=== PATIENT | male | born 1965 | race Caucasian/White ===

== ENCOUNTER 2018-01-31 21:52 | Observation (INO) ==
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
[2018-01-31] MEDS ORDERED: Lidocaine/EPI 1:100k 1% 30 ML VIAL INFILT ONE (23:12)
--- NOTE | 2018-01-31 23:15 | Emergency Department Note ---
Disposition Clinical Impression: Cellulitis of right leg Disposition: Admitted As Inpatient Referrals: Muna Harrell CNP [Primary Care Provider] - Forms: ED Satisfaction Letter General Adult HPI - General Chief complaint: ED Wound/Laceration Stated complaint: Spider Bite, Lt knee, x3 days Time Seen by Provider: 01/31/18 22:28 Source: patient Limitations: no limitations - History of Present Illness HPI Narrative: ED ATTESTATION NOTE: I examined this patient and my medical decision-making was reviewed with the Resident Physician/ELECTRICAL SUPERVISOR/PA/Student. I have personally performed a face to face evaluation on this patient & I agree with the documented findings, disposition and treatment plan as described except to the extent set forth below. Patient was seen with physician assistant plant control operator Mckinley Moss please see copy of her note for details of this encounter Briefly: 52-year-old male seen in outside emergency department just yesterday started on doxycycline states it is getting more painful and red with the boil getting bigger. Denies IV drug use or fever chills no signs of joint involvement or neurovascular compromise his tetanus is up-to-date circumscribed patient will get IV antibiotics screening labs will be admitted. Pain Scale: 8 - Related Data Allergies Allergy/AdvReac Type Severity Reaction Status Date / Time Penicillins Allergy Rash Verified 09/16/16 09:52 Past Medical History - Past Medical History Medical history: Reports: no medical history, migraine Psychiatric history: Reports: no psych history - Social History Smoking Status: Current every day smoker Smokeless Tobacco Status: No Alcohol use: Reports: none Drug use: Reports: none Physical Exam - General Limitations: no limitations General appearance: alert, in no apparent distress Course Vital Signs Temperature 98 F 01/31/18 21:57 Pulse Rate 93 01/31/18 21:57 Respiratory Rate 12 01/31/18 21:57 Blood Pressure 125/81 01/31/18 21:57 O2 Sat by Pulse Oximetry 98 01/31/18 21:57 Temperature 98 F 01/31/18 21:57 Pulse Rate 93 01/31/18 21:57 Respiratory Rate 12 01/31/18 21:57 Blood Pressure 125/81 01/31/18 21:57 O2 Sat by Pulse Oximetry 98 01/31/18 21:57 Oxygen Delivery Oxygen Delivery Room Air
[2018-02-01 00:08] LABS: Basophils # 0.1 K/mcL (0.0-0.2); Basophils % 0.5 %; Eosinophils # 0.6 K/mcL (0.0-0.6); Eosinophils % 5.4 %; Hematocrit 48.7 % (37.5-50.1); Hemoglobin 17.3 g/dL (12.9-16.9); Immature Granulocytes % 0.6 % (0-4); Mean Corpuscular HGB Conc 35.5 g/dL (31.6-35.5); Mean Corpuscular Hemoglobin 32.7 pg (28.0-33.3); Mean Corpuscular Volume 92.1 fL (83.0-100.0); Mean Platelet Volume 9.4 fL (9.4-12.4); Monocytes # 0.7 K/mcL (0.0-1.3); Monocytes % 7.2 %; Neutrophils # 6.9 K/mcL (1.6-8.9); Platelet Count 243 K/mcL (140-400); Red Blood Count 5.29 M/mcL (4.19-5.50); Red Cell Distribution Width 13.6 % (11.5-14.5); Segmented Neutrophils % 67.3 %
[2018-02-01] MEDS ORDERED: 0.9 % Sodium Chloride 1,000 ML IVC ONE (00:19)
[2018-02-01 00:24] LABS: BUN/Creatinine Ratio 11 (6-26); Blood Urea Nitrogen 11 mg/dL (6-20); Carbon Dioxide 25 mEq/L (23-29); Chloride 106 mEq/L (98-107); Glucose 126 mg/dL (70-105); Osmolality,Calculated 285 (280-300); Potassium 3.8 mEq/L (3.5-5.1); Sodium 137 mEq/L (136-145); eGFR For Non-African Americans > 60 (> 60)
[2018-02-01] MEDS ORDERED: *HR* OxyCODONE/APAP 5/325 TABLET PO ONE (00:49)
[2018-02-01] MEDS ORDERED: Levofloxacin 750 MG/150 ML 750 MG/150 ML BAG IVPB ONE (01:37)
[2018-02-01] MEDS ORDERED: *HR* HYDROcodone/Acet 5/325 mg TABLET PO PRN (03:06)
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
[2018-02-01] MEDS ORDERED: Acetaminophen/Butalbital/CaffeineTABLET PO PRN (09:00)
[2018-02-01] MEDS ORDERED: Diclofenac Sodium 75 MG TABLET PO SCH (09:00)
[2018-02-01] MEDS ORDERED: Vancomycin 1,750 MG in 0.9 % Sodium Chloride 250 ML IVPB SCH (09:00)
--- NOTE | 2018-02-01 10:09 | General Surgery Consult Note ---
<Abiel Lim R - Last Filed: 02/01/18 10:07> Date of Encounter: 02/01/18 Time of Encounter: 10:00 Assessment and Plan (1) Abscess or cellulitis of knee Current Visit: Yes Status: Acute Patient does have significant pain and swelling of the superficial medial left knee. Patient recently ate breakfast Plan: CT LLE for further evaluation of abscess and knee joint Likely surgery this evening for I&D pending CT findings NPO now IV abx comfort care and pain control History of Present Illness Consult date: 02/01/18 Reason for consult: other (Left LE abscess) Requesting physician: Rogelio Kim History of present illness: Mr. Chou is a 52 year old male with a history of asthma, current smoker, and migraine headaches. Presenting to the ED overnight for evaluation of left lower extremity swelling and pain. Patient states that approximately 3 days ago he was working in his shed when he noticed a a spider on his leg, he believes this was a brown recluse. 2 days later he noticed increasing swelling and redness at the site of the spider bite, he was seen at [facility] yesterday and started on oral doxycycline. Patient states that he was compliant with this medication, however pain, redness, and swelling worsened significantly and he subsequently presented to the ED for further evaluation. Incision and drainage was tried in the emergency department which was unsuccessful due to inadequate pain control. He denies nausea, vomiting, or fevers. He denies previous occurrence of abscess or cellulitis. Denies IV drug abuse. Patient reports that pain is focal and isolated to the region of swelling, does not radiate, no pain at the knee joint with knee flexion and extension. Was given 1 dose of Levaquin and vancomycin in the ED, patient is currently on vancomycin. No imaging was obtained during initial evaluation. At present evaluation pain is improved with medication, however still present. Continues to deny nausea or vomiting, fever, or chills. Past Med Surg Social Fam HX - Past Medical History Medical history: no medical history, migraine Psychiatric history: no psych history - Past Surgical History Additional surgical history: brain surgery benign tumor - Social History Smoking Status: Current every day smoker Packs per day: 0.5 Smokeless Tobacco Status: No Alcohol use: none Drug use: none Medications and Allergies Acetaminophen/Butalbital/Caffe [Fioricet] 1 tab PO BID 01/31/18 [History] Albuterol Sulfate [Ventolin Hfa] 2 puff IH Q4-6H PRN 01/31/18 [History] Diclofenac Sodium [Voltaren] 75 mg PO BID 01/31/18 [History] Doxycycline [Doxycycline] 100 mg PO BID 01/31/18 [History] Gabapentin [Neurontin] 600 mg PO TID 01/31/18 [History] Tamsulosin HCl [Flomax] 0.4 mg PO TID 01/31/18 [History] DiphenhydraMINE [Benadryl] 25 mg PO BID PRN 02/01/18 [History] Mometasone/Formoterol [Dulera 200 Mcg/5 Mcg Inhaler] 1 puff IH DAILY 02/01/18 [ History] 3 Allergy/AdvReac Type Severity Reaction Status Date / Time Penicillins Allergy Rash Verified 09/16/16 09:52 Review of Systems All systems PM: The remainder of the systems were reviewed and are negative General Surgery Exam Initial Vital Signs Temp Pulse Resp BP Pulse Ox 98 F 93 12 125/81 98 01/31/18 21:57 01/31/18 21:57 01/31/18 21:57 01/31/18 21:57 01/31/18 21:57 - General physical appearance well developed, well nourished, no distress - Eyes PERRL, normal ocular movement - ENT normal mucosa, decreased hearing, atraumatic, normocephalic - Neck trachea midline, no lymphadectomy - Respiratory normal expansion, normal respiratory effort - Cardiovascular Cardiovascular exam: Present: RRR - Abdomen Abdomen general surgery: Present: bowel sounds present, soft, non tender - Integumentary Integumentary general surgery: Present: other (Erythema and superficial swelling , aproximately 9x7 cm, along the medial aspect of the left knee, surrounded by skin marker outline. Opening with minimal drainage is present in the center of the indurated region. Unable to express drainage on exam. ) - Neurologic Present: CN 2-12 grossly intact - Musculoskeletal Present: normal posture - Psychiatric Psychiatric general surgery: Present: A&Ox3, speech is normal, memory intact Exam Initial Vital Signs Temp Pulse Resp BP Pulse Ox 98 F 93 12 125/81 98 01/31/18 21:57 01/31/18 21:57 01/31/18 21:57 01/31/18 21:57 01/31/18 21:57 Results - Labs 01/31/18 23:33 01/31/18 23:33 Abnormal lab results Hgb 17.3 g/dL (12.9-16.9) H 01/31/18 23:33 Glucose 126 mg/dL (70-105) H 01/31/18 23:33 All other labs normal. Consult Discharge Plan - Plan Referrals: Muna Harrell, [employer] [Primary Care Provider] - <Hugh Oneal - Last Filed: 02/01/18 16:55> Date of Encounter: 02/01/18 Review of Systems All systems PM: The remainder of the systems were reviewed and are negative General Surgery Exam Initial Vital Signs Temp Pulse Resp BP Pulse Ox 98 F 93 12 125/81 98 01/31/18 21:57 01/31/18 21:57 01/31/18 21:57 01/31/18 21:57 01/31/18 21:57 Exam Initial Vital Signs Temp Pulse Resp BP Pulse Ox 98 F 93 12 125/81 98 01/31/18 21:57 01/31/18 21:57 01/31/18 21:57 01/31/18 21:57 01/31/18 21:57 Results - Labs 01/31/18 23:33 01/31/18 23:33 Abnormal lab results Hgb 17.3 g/dL (12.9-16.9) H 01/31/18 23:33 Glucose 126 mg/dL (70-105) H 01/31/18 23:33 All other labs normal. - Attending Attestation patient seen and examined. I have reviewed all labs, imaging, and notes. I agree with the above assessment and plan and wish to add the following... 52M likely with subcutaneous abscess along his left knee; plan for I&D today
[2018-02-01] MEDS ORDERED: OXYCODONE Oral CONC 10 MG/0.5 ML ORAL.SYG SL PRN (10:38)
[2018-02-01] MEDS: Gabapentin 300 MG CAPSULE PO SCH ×3 (10:51→20:42)
[2018-02-01] MEDS ORDERED: Isovue-370 500 ML INFUS..BTL IV ONE (11:02)
[2018-02-01] MEDS ORDERED: *HR* Propofol 200 MG/20 ML VIAL IVP ONE (17:39)
[2018-02-01] MEDS ORDERED: Dexamethasone 4 MG/ML VIAL ONE (17:39)
[2018-02-01] MEDS ORDERED: *HR* Succinylcholine 200 MG/10 ML VIAL IVP ONE (17:39)
[2018-02-01] MEDS ORDERED: Lidocaine -MPF 2% 2 ML VIAL ONE (17:39)
[2018-02-01] MEDS ORDERED: Ondansetron 4 MG/2 ML VIAL ONE (17:39)
[2018-02-01] MEDS ORDERED: *HR* Midazolam HCl 2 MG/2 ML VIAL ONE (17:39)
[2018-02-01] MEDS ORDERED: *HR* FentaNYL (PF) 100 MCG/2 ML VIAL ONE (17:39)
[2018-02-01] MEDS ORDERED: Albuterol 2.5 MG/3 ML NEBULIZER ONE (17:41)
--- NOTE | 2018-02-01 17:55 | Anesthesia Evaluation PreOp ---
Date of Encounter: 02/01/18 Time of Encounter: 17:53 - Past History Planned Operation: I and D knee Cardiac History: Denies any Significant Hx Pulmonary History: Smoker, COPD, Other (non compliant with therapy) SEARCH ANALYST History: Denies Any Significant HX Other Medical History: Denies Any Significant HX Anesthesia History: No Prior Anesthetic Complications, Past Anesthesia Alcohol Use: none Drug use: none Medications and Allergies Acetaminophen/Butalbital/Caffe [Fioricet] 1 tab PO BID 01/31/18 [History] Albuterol Sulfate [Ventolin Hfa] 2 puff IH Q4-6H PRN 01/31/18 [History] Diclofenac Sodium [Voltaren] 75 mg PO BID 01/31/18 [History] Doxycycline [Doxycycline] 100 mg PO BID 01/31/18 [History] Gabapentin [Neurontin] 600 mg PO TID 01/31/18 [History] Tamsulosin HCl [Flomax] 0.4 mg PO TID 01/31/18 [History] DiphenhydraMINE [Benadryl] 25 mg PO BID PRN 02/01/18 [History] Mometasone/Formoterol [Dulera 200 Mcg/5 Mcg Inhaler] 1 puff IH DAILY 02/01/18 [ History] 3 Allergy/AdvReac Type Severity Reaction Status Date / Time Penicillins Allergy Rash Verified 09/16/16 09:52 - Meds/Allergy Pre-op Review Medications Reviewed: Yes Allergies Reviewed: Yes Beta Blockers on Current Med List: No Anesthesia Results - Labs 01/31/18 23:33 01/31/18 23:33 Anesthesia Exam Selected Entries 02/01/18 14:53 Temperature 98.1 F Pulse Rate 80 Respiratory Rate 18 Blood Pressure 99/66 O2 Sat by Pulse Oximetry 94 Weight: 110 kg NPO (# of Hours): over 8 hours - HEENT Pupil (Motor): Pupils equal Mallampati: II Teeth: Edentulous Oral Opening: Greater than 3 - Cardiac Rhythm: Regular Murmur: None - Pulmonary Breath Sounds: bilateral Clear Respiratory Effort: Symmetrical Anesthesia Assess/Plan ASA Score: 2 Modified [place] Scale for Level of Consciousness: Cooperative, oriented, and tranquil Anesthetic Plan: General Monitoring Plan: Standard Monitors Recovery Plan: PACU (Discussed GA, risks. Agreed to proceed.)
[2018-02-01] MEDS ORDERED: Acetaminophen IV 1,000 MG/100 ML INFUS..BTL IVPB ONE ×2 (17:56→19:57)
[2018-02-01] MEDS ORDERED: Silver Sulfadiazine 50 GM TUBE TP ONE (18:21)
--- NOTE | 2018-02-01 19:06 | Anesthesia Evaluation Post Op ---
Date of Encounter: 02/02/18 Time of Encounter: 19:15 - Vital Signs Vital Signs: VSS - Lungs Lungs: Clear Ascult./Percussion - Airway Airway: Non-obstructed - Cardiovascular Regular Rate - Mental Status Mental Status: Alert & Oriented, Answers Appropriately - Nausea Vomiting Nausea Vomiting: Not Present - Hydration Hydration: NPO - Discharge PostOp Status: Transfer Patient to floor
--- NOTE | 2018-02-01 20:36 | Operative Note ---
Date of procedure: 02/01/18 Pre-op diagnosis: left knee abscess Post-op diagnosis: same Procedure: incision and drainage of left knee abscess Implants: none Complications: none Anesthesia: GETA Surgeon: Hugh Oneal Was there an carpenter's assistant present: No Buckle Strap Puncher Other: Huong Loja Estimated blood loss (cc): 3 Specimen: culture swab of abscess Condition: stable Disposition: PACU Procedure in Detail: patient was brought into the operating room suite. mechanical dvt prophylaxis was placed. He was placed in the supine position. He underwent smooth induction of anesthesia. Preoperative antibiotics were given. Prepped and draped in the usual fashion. A timeout was held identifying correct patient, pathology,procedure, and physician. I started by creating a cruciate incision. I then took some culture swabs. I then used the rajeev instruments to spread the subcutaneous tissue and break up loculation. THere was significant drainage of purulent material. I then irrigated with saline and packed with iodoform guaze and ABD pad. The patient tolerated the procedure and was escorted to the floor in stable condition.
[2018-02-01] MEDS: Acetaminophen/Butalbital/CaffeineTABLET PO PRN (20:42)
[2018-02-01] MEDS: Diclofenac Sodium 75 MG TABLET PO SCH (20:43)
[2018-02-01] MEDS: OXYCODONE Oral CONC 10 MG/0.5 ML ORAL.SYG SL PRN (23:08)
[2018-02-02] MEDS: Budesonide/Formoterol 160/4.5 1 PUFF INH IH SCH (07:49)
[2018-02-02] MEDS: Gabapentin 300 MG CAPSULE PO SCH ×3 (08:45→20:26)
[2018-02-02] MEDS: Diclofenac Sodium 75 MG TABLET PO SCH ×2 (08:46→20:30)
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
[2018-02-02] MEDS ORDERED: Ondansetron ODT 4 MG TAB.RAPDIS SL PRN (08:49)
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
[2018-02-02] MEDS ORDERED: Budesonide/Formoterol 160/4.5 1 PUFF INH IH SCH (09:00)
[2018-02-02] MEDS ORDERED: levoFLOXacin 750 MG TABLET PO SCH ×2 (09:00)
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
[2018-02-02] MEDS: OXYCODONE Oral CONC 10 MG/0.5 ML ORAL.SYG SL PRN ×3 (10:23→20:27)
[2018-02-02] MEDS ORDERED: Aminoglycoside Consult 1 EACH MC ONE (13:25)
[2018-02-02 15:09] LABS: Basophils % 0.2 %; Eosinophils # 0.6 K/mcL (0.0-0.6); Eosinophils % 9.5 %; Hematocrit 41.9 % (37.5-50.1); Immature Granulocytes % 0.7 % (0-4); Lymphocytes # 1.2 K/mcL (0.6-4.6); Lymphocytes % 19.6 %; Mean Corpuscular HGB Conc 33.4 g/dL (31.6-35.5); Mean Corpuscular Hemoglobin 31.1 pg (28.0-33.3); Mean Corpuscular Volume 93.1 fL (83.0-100.0); Mean Platelet Volume 9.7 fL (9.4-12.4); Monocytes # 0.4 K/mcL (0.0-1.3); Monocytes % 6.7 %; Neutrophils # 3.9 K/mcL (1.6-8.9); Platelet Count 211 K/mcL (140-400); Red Cell Distribution Width 13.6 % (11.5-14.5); Segmented Neutrophils % 63.3 %
[2018-02-02 16:19] LABS: BUN/Creatinine Ratio 14 (6-26); Blood Urea Nitrogen 13 mg/dL (6-20); Calcium 8.2 mg/dL (8.6-10.3); Carbon Dioxide 24 mEq/L (23-29); Chloride 109 mEq/L (98-107); Glucose 119 mg/dL (70-105); Osmolality,Calculated 283 (280-300); Potassium 4.2 mEq/L (3.5-5.1); Sodium 136 mEq/L (136-145); eGFR For Non-African Americans > 60 (> 60)
[2018-02-02] MEDS: *HR* Heparin 5,000 UNIT/ML VIAL SQ SCH (19:08)
[2018-02-02] MEDS: Acetaminophen/Butalbital/CaffeineTABLET PO PRN ×2 (20:26→23:50)
[2018-02-03] MEDS: *HR* Heparin 5,000 UNIT/ML VIAL SQ SCH ×2 (04:36→16:57)
[2018-02-03] MEDS: Budesonide/Formoterol 160/4.5 1 PUFF INH IH SCH (07:39)
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
[2018-02-03] MEDS: OXYCODONE Oral CONC 10 MG/0.5 ML ORAL.SYG SL PRN ×3 (08:18→16:55)
[2018-02-03] MEDS: Gabapentin 300 MG CAPSULE PO SCH ×3 (08:25→20:16)
[2018-02-03] MEDS: Diclofenac Sodium 75 MG TABLET PO SCH ×2 (08:25→20:16)
[2018-02-03] MEDS: Acetaminophen/Butalbital/CaffeineTABLET PO PRN ×2 (08:25→16:50)
[2018-02-03] MEDS: Doxycycline 100 MG CAPSULE PO SCH ×2 (12:47→20:16)
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
[2018-02-03] MEDS ORDERED: *HR* Promethazine 25 MG/ML VIAL IVP PRN (21:11)
[2018-02-03] MEDS ORDERED: Isovue-370 500 ML INFUS..BTL IV ONE (21:41)
--- NOTE | 2018-02-03 21:50 | Event Note ---
Date of Encounter: 02/03/18 Time of Encounter: 21:06 Alerted by pts. nurse Kenneth RN that the pt. was experiencing nausea w/vomiting and Zofran was not helping. IVP Phenergan ordered 12.5 mg Q6HR PRN for N/V. 21:11 Alerted by pts. nurse that pt. was feeling better and did not want the Phenergan at this time but would like Tums instead. Asked pts. nurse when last dose of doxycycline was administered which he stated was 20:16. Instructed nurse that Tums were contraindicated 2 hours before or 2 hours after Doxycycline. 21:37 Alerted by pts. nurse Kenneth that pt. was now experiencing crushing chest pain (6/10), SOB, and pain in left arm. Pt. is status post-incision and drainage of left knee. Concern for possible PE based on current sx. CTA of chest ordered. Stat EKG and stat troponin ordered. Repeat troponin at 04:00. Stat troponin <0.03. EKG shows NSR. Awaiting results on CTA of chest. Pt. placed on continuous cardiac telemetry for the time being.
[2018-02-03] MEDS ORDERED: Ipratropium/Albuterol Neb 3 ML IH PRN (23:21)
[2018-02-04] MEDS ORDERED: Prochlorperazine 10 MG/2 ML VIAL IVP ONE (00:46)
[2018-02-04 04:35] LABS: Hematocrit 40.3 % (37.5-50.1); Hemoglobin 13.3 g/dL (12.9-16.9); Mean Corpuscular Hemoglobin 30.4 pg (28.0-33.3); Mean Corpuscular Volume 92.2 fL (83.0-100.0); Mean Platelet Volume 9.5 fL (9.4-12.4); Platelet Count 216 K/mcL (140-400); Red Blood Count 4.37 M/mcL (4.19-5.50); Red Cell Distribution Width 13.4 % (11.5-14.5)
[2018-02-04 04:57] LABS: BUN/Creatinine Ratio 12 (6-26); Blood Urea Nitrogen 12 mg/dL (6-20); Calcium 8.2 mg/dL (8.6-10.3); Carbon Dioxide 26 mEq/L (23-29); Chloride 107 mEq/L (98-107); Glucose 95 mg/dL (70-105); Osmolality,Calculated 286 (280-300); Sodium 138 mEq/L (136-145); eGFR For Non-African Americans > 60 (> 60)
[2018-02-04] MEDS: *HR* Heparin 5,000 UNIT/ML VIAL SQ SCH (06:03)
[2018-02-04 07:44] VITALS: BP 102/59
[2018-02-04] MEDS: Budesonide/Formoterol 160/4.5 1 PUFF INH IH SCH (08:09)
[2018-02-04] MEDS: Gabapentin 300 MG CAPSULE PO SCH (09:04)
[2018-02-04] MEDS: Diclofenac Sodium 75 MG TABLET PO SCH (09:04)
[2018-02-04] MEDS: Doxycycline 100 MG CAPSULE PO SCH (09:04)
[2018-02-04] MEDS: OXYCODONE Oral CONC 10 MG/0.5 ML ORAL.SYG SL PRN (09:06)
--- NOTE | 2018-02-04 10:21 | Discharge Summary ---
- NOTES TO OUTPATIENT PROVIDER Notes to Outpatient Provider: Patient was admitted for left knee cellulitis/ phlegmon. Had I&D done and intraop culture grew MRSA sensitive to Doxycycline. AFter 3 days of IV Vanc, he developed mild rash on his lower extremities and abx was switched to PO doxycycline. To be completed additional 7 days of treatement. He will be seen in [facility] on 02/10 as well. Orders not resulted at time of discharge: Pending orders 02/01/18 18:35 Culture,Anaerobic [RM] Routine 02/03/18 23:24 Respiratory Infection Panel [MOLMIC] Stat Date of Encounter: 02/04/18 Time of Encounter: 08:30 - Discharge Diagnosis (1) Abscess or cellulitis of knee Priority: Primary Status: Acute (2) Asthma Priority: Secondary Status: Acute Qualifiers: Asthma severity: unspecified severity Asthma persistence: unspecified Asthma complication type: unspecified Qualified Code(s): J45.909 - Unspecified asthma, uncomplicated (3) Migraine Priority: Secondary Status: Acute Qualifiers: Migraine type: unspecified Status migrainosus presence: without status migrainosus Intractability: not intractable Qualified Code(s): G43.909 - Migraine, unspecified, not intractable, without status migrainosus (4) BPH (benign prostatic hyperplasia) Priority: Secondary Status: Acute Qualifiers: Lower urinary tract symptom presence: unspecified whether lower urinary tract symptoms present Qualified Code(s): N40.0 - Benign prostatic hyperplasia without lower urinary tract symptoms Hospital course: Mr. Chou is a 52 year old male was admitted for left knee cellulitis/ phlegmon. Had I&D done and intraop culture grew MRSA sensitive to Doxycycline. AFter 3 days of IV Vanc, he developed mild rash on his lower extremities and abx was switched to PO doxycycline. To be completed additional 7 days of treatement. Of note, he was offered home health services or even possible placement for assistance with dressing changes but he refused all the services and claim that he will get his to change it for him. Explained to the patient in great detail regarding the importance of proper wound care and possible superimposing infection which he verbalized understanding. He is to follow up with Wound Clinic on 02/10. He had 1 episode of chest pain during his stay which he related to vomiting. Troponins were negative, EKG did not show any concerning ischemic changes, and CTA was negative for PE but mild airspace disease PNA vs. atelectasis. Given his clinical context without any pulmonary signs/symptoms nor oxygen requirement, he was advised to complete the abx as above but return to the ED if symptoms recur or worsen. Discharge discussed with: patient, nurse, social work - Time Spent with Patient Total time spent providing and/or coordinating discharge services: Greater than 30 minutes - Discharge Medications Prescriptions: HYDROcodone/Acet 10/325 mg [[place] 10-325 mg] 1 tab PO Q4HR PRN 4 Days #15 tab PRN Reason: Breakthrough Pain Ondansetron ODT [Zofran ODT] 4 mg SL Q6HR PRN #16 tab.rapdis PRN Reason: Vomiting Doxycycline 100 mg PO BID 7 Days #14 capsule Home Medications: Acetaminophen/Butalbital/Caffe [Fioricet] 1 tab PO BID 01/31/18 [History] Albuterol Sulfate [Ventolin Hfa] 2 puff IH Q4-6H PRN 01/31/18 [History] Diclofenac Sodium [Voltaren] 75 mg PO BID 01/31/18 [History] Gabapentin [Neurontin] 600 mg PO TID 01/31/18 [History] Tamsulosin HCl [Flomax] 0.4 mg PO TID 01/31/18 [History] DiphenhydraMINE [Benadryl] 25 mg PO BID PRN 02/01/18 [History] Mometasone/Formoterol [Dulera 200 Mcg/5 Mcg Inhaler] 1 puff IH DAILY 02/01/18 [ History] Doxycycline 100 mg PO BID 7 Days #14 capsule 02/04/18 [Rx] HYDROcodone/Acet 10/325 mg [[place] 10-325 mg] 1 tab PO Q4HR PRN 4 Days #15 tab [Rx] Ondansetron ODT [Zofran ODT] 4 mg SL Q6HR PRN #16 tab.rapdis 02/04/18 [Rx] Allergies/Adverse Reactions: 3 Allergy/AdvReac Type Severity Reaction Status Date / Time Penicillins Allergy Mild Rash Verified 02/03/18 16:09 vancomycin Allergy Mild Rash Verified 02/03/18 16:09 Date of admission: 02/01/18 01:45 Primary care physician: Muna Harrell CNP Consults: 02/01/18 10:12 Consult to Surgery [CONS] Routine Consulting Provider: [facility] Reason for Consult: Abscess Call Completed: Yes 02/02/18 09:29 Consult to Ssis Developer [CONS] Routine Reason for SW Consult: L knee abscess/phlegmon, patient not comfortable with dressing changes at home - Constitutional Vitals: Temp Pulse Resp BP Pulse Ox 97.7 F 69 16 102/59 95 02/04/18 07:43 02/04/18 07:43 02/04/18 08:11 02/04/18 07:43 02/04/18 08:11 General appearance: Present: A&O X 3, no acute distress Exam: General: Alert and oriented, mild distress due to pain Cardiovascular:Normal S1 & S2, No JVD. Pulse regular. Lungs: clear to auscultation, no wheezes/rales Abdomen:Soft, non-tender, no rigidity. Extremities: L knee dressing dry and clean. Surrounding erythema and induration noted, tender to touch Neurological:Normal cognition and motor skills. Non-focal - Patient Status Disposition: Home, Self-Care Condition: Good Overall status at discharge: patient is progressing back to baseline - Discharge Instructions Instructions: Cellulitis (DC), Asthma (DC) Follow Up With: Hugh Oneal MD [Non-Partnered Physician] - 02/10/18 10:45 am (See Dr Oneal in the wound care department. Thank you) Muna Harrell CNP [Primary Care Provider] - - Diet and Activity Activity: resume usual activities as tolerated Diet: regular diet
--- NOTE | 2018-02-05 13:37 | Physician Discharge Referral ---
Home Health/Hosp Referral Info Transfer to: Home Health - Diagnosis (1) Abscess or cellulitis of knee Priority: Primary Status: Acute (2) Asthma Priority: Secondary Status: Acute (3) Migraine Priority: Secondary Status: Acute (4) BPH (benign prostatic hyperplasia) Priority: Secondary Status: Acute - Respiratory Orders Smoking Cessation: Smoking cessation has been advised. For more information, call the [place] [employer] Quit Line at 0-108-NRAL-NOW. - Services Needed Following services are medically necessary services: Nursing (for L knee wound dressing) - Transfer Medications Prescriptions: HYDROcodone/Acet 10/325 mg [[place] 10-325 mg] 1 tab PO Q4HR PRN 4 Days #15 tab PRN Reason: Breakthrough Pain Ondansetron ODT [Zofran ODT] 4 mg SL Q6HR PRN #16 tab.rapdis PRN Reason: Vomiting Doxycycline 100 mg PO BID 7 Days #14 capsule Home Medications: Acetaminophen/Butalbital/Caffe [Fioricet] 1 tab PO BID 01/31/18 [History] Albuterol Sulfate [Ventolin Hfa] 2 puff IH Q4-6H PRN 01/31/18 [History] Diclofenac Sodium [Voltaren] 75 mg PO BID 01/31/18 [History] Gabapentin [Neurontin] 600 mg PO TID 01/31/18 [History] Tamsulosin HCl [Flomax] 0.4 mg PO TID 01/31/18 [History] DiphenhydraMINE [Benadryl] 25 mg PO BID PRN 02/01/18 [History] Mometasone/Formoterol [Dulera 200 Mcg/5 Mcg Inhaler] 1 puff IH DAILY 02/01/18 [ History] Doxycycline 100 mg PO BID 7 Days #14 capsule 02/04/18 [Rx] HYDROcodone/Acet 10/325 mg [[place] 10-325 mg] 1 tab PO Q4HR PRN 4 Days #15 tab [Rx] Ondansetron ODT [Zofran ODT] 4 mg SL Q6HR PRN #16 tab.rapdis 02/04/18 [Rx] Allergies/Adverse Reactions: 3 Allergy/AdvReac Type Severity Reaction Status Date / Time Penicillins Allergy Mild Rash Verified 02/03/18 16:09 vancomycin Allergy Mild Rash Verified 02/03/18 16:09 Certification: Further, I certify that my clinical findings support that this patient is homebound (i.e. absences from home require considerable and taxing effort and are for medical reasons or restorationist services or infrequently or short duration when for other reasons) because: Homebound Reason: Patient requires assistance of a person or device to safely leave home Attestation: My signature below is to certify that this patient is under my care and that I, or nurse practitioner, or a physician's housekeeper/laundry assistant working with me, has a face-to -face encounter with this patient.
--- NOTE | 2018-02-08 09:15 | Electrocardiograph Report ---
[address] [address] Test Date: 2018-02-03 Pat Name: Walter Chou Department: 114 Room: [facility] Gender: M Tile Setter Supervisor: : 1965 Requested By: [id number] Order Number: [id number] Reading MD: Luis Wood Measurements Intervals [place] Rate: 88 P: 31 WV: 288 QRS: 51 QRSD: 118 T: 25 QT: 350 QTc: 395 Interpretive Statements SINUS RHYTHM SIGNIFICANT ARTIFACT COMPLICATES INTERPRETATION RECOMMEND REPEAT ECG Electronically Signed On 02-08-2018 9:13:35 EDT by Luis Wood
--- NOTE | 2018-02-08 09:15 | Electrocardiograph Report ---
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
--- NOTE | 2018-02-08 09:16 | Electrocardiograph Report ---
[address] [address] Test Date: 2018-02-03 Pat Name: Walter Chou Department: 113 Room: 3A Gender: Oracle Engineer: PRATIMA : 1965 Requested By: Mehran Mcgovern Order Number: [id number] Reading MD: Luis Wood Measurements Intervals [place] Rate: 81 P: 8 UT: 168 QRS: 58 QRSD: 106 T: 15 QT: 339 QTc: 376 Interpretive Statements SINUS RHYTHM Electronically Signed On 02-08-2018 9:14:36 EDT by Luis Wood
== END 2018-02-04 13:26 | disposition home health service (06) ==
LOC: 3ANU 21:52 → EMEROOARM 21:52 → SUATTDRO 02-01 01:45 → 3ANU 02-01 02:10
PROVIDERS: ADMIT Pediatrics; ATTEND Internal Medicine